=== PATIENT | male | born 1940 | race Caucasian/White ===

== ENCOUNTER 2019-03-04 09:15 | Outpatient (RCR) | payer MEDICARE, OTHER | END 2019-05-05 | LOC: WSPT | DX: M25.552 Pain in left hip (principal) ==

== ENCOUNTER → 2020-03-07 | Outpatient (CLI) | payer MEDICARE, OTHER | LOC: ZCOL.LAB 15:41 | DX: R19.7 Diarrhea, unspecified (principal); Z20.828 Contact with and (suspected) exposure to other viral communicable diseases ==